=== PATIENT | male | born 1935 | race Caucasian/White ===

== ENCOUNTER → 2017-07-07 | Outpatient (CLI) | payer OTHER | LOC: RAD 10:03 | DX: R06.00 Dyspnea, unspecified (principal) ==

== ENCOUNTER → 2017-10-14 | Outpatient (CLI) | payer OTHER ==
[~2017-10-14] MED LIST: ASPIR 8181 MG PO; CEFUROXIME250 MG PO; COUMADIN 2.5MG2.5 M1 PO; COUMADIN 5 MG TA5 M1 PO; DEMADEX 2020 MG/1 TA PO; LEVALBUTER1.25 MG/0. INH; LIPITOR 20 MG T20 M1 PO; MEDROLDOSEPACK PO; METOPROLOL SUCC50 MG PO; PREDNISONE 20 M20 M1 PO; Synthroid; TOPROL XL50 MG
== END ==
LOC: CAT 08-23 08:01
DX: R91.1 Solitary pulmonary nodule (principal); I51.7 Cardiomegaly; J84.9 Interstitial pulmonary disease, unspecified; J84.10 Pulmonary fibrosis, unspecified; R59.0 Localized enlarged lymph nodes; K80.80 Other cholelithiasis without obstruction; R91.8 Other nonspecific abnormal finding of lung field; L84 Corns and callosities; M47.894 Other spondylosis, thoracic region; J98.11 Atelectasis; Z95.0 Presence of cardiac pacemaker

== ENCOUNTER 2018-01-28 21:15 | Inpatient (IN) | payer OTHER ==
[~2018-01-28] VITALS: Ht 180.3 cm; Wt 83.4 kg
--- NOTE | ~2018-01-28 | EKG ---
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 : 1935 Requested By: Nicolasa Le Order Number: [id number] MD: Shemar Brady Measurements Intervals [place] Rate: 62 P: NV: QRS: -75 QRSD: 166 T: 105 QT: 509 QTc: 517 Interpretive Statements Afib/flut and V-paced complexes No further analysis attempted due to paced rhythm Baseline wander in lead(s) I,III,aVL,V4 Compared to ECG 08/19/2017 13:26:48 ventricular pacing is now present Electronically Signed On 01-31-2018 7:47:24 CDT by Shemar Brady [email or web address] <ELECTRONICALLY SIGNED> By: Shemar Brady MD, [facility] 01/31/18 0747 215 52 Shemar Brady MD, [facility] /EPI
--- NOTE | ~2018-01-28 | HC ---
[facility] [place] [address] CONSULTATION Name: ANCA VAZQUEZ Room #: [address] [place] [address] IN M.R.#: [id number] Admission: 01/28/18 Attend Phys: Aayush Napier DO Discharge: Date of : 37 Report #: [id number] THIS REPORT FOR: //name// CC: Aayush SMITH DEARY DATE OF SERVICE: 01/29/2018 REFERRING PROVIDER: Aayush Napier DO REASON FOR CONSULTATION: Shortness of breath and hypoxemia. HISTORY OF PRESENT ILLNESS: Our group was asked to see the patient in consultation while hospitalized at [facility]. Discussed with Dr. eL in the Emergency Department, the patient at bedside. He is known to me from prior office visits for a known history of interstitial pulmonary fibrosis consistent with prior amiodarone use and was to have followup later this week with repeat pulmonary function studies to see if findings are stable, also has chronic hypoxemic respiratory failure and problems with pulmonary hypertension, has been having several days of increasing shortness of breath. A dinner with family noted increasing dyspnea and labored breathing even ambulating short distances. No cough or congestion noted. The patient has been compliant with his CPAP at night. The patient had a chest x-ray in the Emergency Department, felt to be somewhat pulmonary edema and was given diuretics overnight, noted some improvement in symptoms. No lower extremity edema or change in weight noted by the patient. ALLERGIES: AMIODARONE. PAST MEDICAL HISTORY: 1. History of interstitial pulmonary fibrosis. 2. Pulmonary hypertension. 3. Obstructive sleep apnea. 4. Allergic rhinitis. 5. Atrial fibrillation. 6. Coronary artery disease. 7. Hypertension. 8. Hyperlipidemia. 9. Hypothyroidism. PAST SURGICAL HISTORY: Includes skin cancer resections, rotator cuff repair, tonsillectomy, and coronary artery bypass grafting. SOCIAL HISTORY: The patient is a nonsmoker, no alcohol consumption. [facility] [address] [place] [address] CONSULTATION Name: ANCA VAZQUEZ Room #: 215-P [facility] IN ..#: [id number] Admission: 01/28/18 Attend Phys: Aayush Napier DO Discharge: Date of : 37 Report #: [id number] FAMILY HISTORY: Noncontributory. REVIEW OF SYSTEMS: CONSTITUTIONAL: No fever, chills, sweats. ENT: No upper respiratory congestion, rhinorrhea or dysphagia. CARDIOVASCULAR: No chest pains, palpitations, lower extremity edema. GASTROINTESTINAL: No nausea, vomiting, diarrhea, constipation, abdominal pain, or reflux. GENITOURINARY: No dysuria, no frequency, no hematuria. INTEGUMENT: Denies any rash. MUSCULOSKELETAL: No new joint pains or swelling. PHYSICAL EXAMINATION: VITAL SIGNS: Afebrile, pulse 70s, respiratory rate 18, blood pressure 140/89. GENERAL: This is a pleasant elderly male, in no distress. HEENT: Clear oropharynx. NECK: Supple, no lymphadenopathy. LUNGS: Basilar inspiratory crackles, no wheezes. CARDIOVASCULAR: Heart regular. No murmurs noted. ABDOMEN: Soft, nontender, no masses. EXTREMITIES: With only trace edema. LABORATORY DATA: Chest x-ray with mild interstitial prominence in the bases and some mild pulmonary vascular engorgement. White blood cell count 8000, hemoglobin 14, hematocrit 40, platelet count 195. Sodium 138, potassium 4.1, chloride 102, bicarbonate 23, BUN 43, creatinine 1.5, glucose 217. Arterial blood gas on 3 liters, which is his baseline FiO2 is pH 7.45, pCO2 of 33, pO2 of 69, bicarbonate 24. IMPRESSION: 1. Acute on chronic hypoxemic respiratory failure, perhaps related to some mild pulmonary edema or exacerbation of underlying interstitial lung disease. 2. Chronic interstitial lung disease, suspect from amiodarone use in the past. 3. History of atrial fibrillation. 4. Pulmonary hypertension. SUGGESTIONS: 1. Continue diuresis. 2. Follow up chest radiograph. 3. Bronchodilators. 4. Systemic steroid taper. By: 1528 1808 Isaac Shook MD /nt
--- NOTE | ~2018-01-28 | 2DMMODE ---
[facility] [address] [place] [address] 2 D/M-MODE ECHOCARDIOGRAM Name: ANCA VAZQUEZ Room #: 215-P [facility] IN M.R.#: [id number] Admission: 01/28/18 Attend Phys: Aayush Napier, Discharge: Date of : 37 Date of Service: 01/30/18 1054 Report #: [id number] THIS REPORT FOR: //name// APPROVED REPORT Study performed: 01/29/2018 09:01:09 EXAM: Comprehensive 2D, Doppler, and color-flow Echocardiogram Patient Location: Bedside Room #: 215 Status: on-call BSA: 1.73 HR: 86 bpm BP: 128/84 mmHg Rhythm: Atrial Fibrillation Other Information Study Quality: Good Indications Dyspnea Hx: CABG, stents, CHF, Afib, pacemaker 2D Dimensions RVDd: 63.61 mm LVEF(%): 75.05 (>50%) IVSd: 12.13 (7-11mm) LVOT Diam: 21.12 (18-24mm) LVDd: 35.09 mm PWd: 10.75 (7-11mm) Ascending Ao: 37.60 (22-36mm) LVDs: 20.03 (25-40mm) Aortic Root: 40.01 mm Mast's LVEF: 75.05 % Volumes Left Atrial Volume (Systole) Single Plane 4CH: 40.25 mL Single Plane 2CH: 107.43 mL LA ESV Index: 41.00 mL/m2 Aortic Valve AoV Peak Aman.: 2.43 m/s AO Peak Gr.: 23.70 mmHg LVOT Max P.21 mmHg AO Mean Gr.: 12.34 mmHg AO V2 Mean: 1.62 m/s LVOT Max V: 0.89 m/s AO V2 VTI: 39.88 cm IVAN Vmax: 1.29 cm2 [facility] [place] [address] 2 D/M-MODE ECHOCARDIOGRAM Name: GEORGEANCA Room #: 215-[facility] IN ..#: [id number] Admission: 01/28/18 Attend Phys: Aayush Napier, Discharge: Date of : 37 Date of Service: 01/30/18 1054 Report #: [id number] Mitral Valve MV Decel. Time: 161.09 ms MV E Max Aman.: 1.01 m/s Pulmonary Valve PV Peak Aman.: 1.03 m/s PV Peak Gr.: 4.48 mmHg Tricuspid Valve TR Peak Aman.: 2.79 m/s RAP Estimate: 15.00 mmHg TR Peak Gr.: 31.85 mmHg PA Pressure: 47.00 mmHg Left Ventricle The left ventricle is normal size. There is normal LV segmental wall motion. Mild concentric left ventricular hypertrophy. Left ventricular systolic function is normal. LVEF is 60%. This study is not technically sufficient to allow evaluation of the LV diastolic function due to atrial fibrillation. Right Ventricle Right ventricle is severely dilated. Right ventricle is moderately hypokinetic. Pacemaker lead is present in the right ventricle. Atria Left atrium is moderately dilated. Right atrium is severely dilated. Aortic Valve Aortic valve is moderately calcified. Mild aortic regurgitation. Mild to moderate aortic stenosis. Calculated IVAN by the continuity equation is 1.4cm2. Mitral Valve Mitral valve leaflets are mildly thickened and calcified. Mild mitral annular calcification. Moderate mitral regurgitation. No evidence of mitral valve stenosis. Tricuspid Valve The tricuspid valve is normal in structure. Severe tricuspid regurgitation. Estimated PAP is 45-50mmHg. Pulmonic Valve The pulmonary valve is normal in structure. Moderate to severe pulmonic regurgitation. [employer] [facility] [address] [place] [address] 2 D/M-MODE ECHOCARDIOGRAM Name: ANCA VAZQUEZ Room #: 215[facility]P [facility] IN .R.#: [id number] Admission: 01/28/18 Attend Phys: Aayush Napier, Discharge: Date of : 37 Date of Service: 01/30/18 1054 Report #: [id number] Aortic root is mildly dilated. The ascending aorta is borderline dilated. IVC is dilated and collapses <50% with inspiration. Pericardium There is no pericardial effusion. <Conclusion> The left ventricle is normal size. Mild concentric left ventricular hypertrophy. LVEF is 60%. This study is not technically sufficient to allow evaluation of the LV diastolic function due to atrial fibrillation. Right ventricle is severely dilated. Right ventricle is moderately hypokinetic. Left atrium is moderately dilated. Right atrium is severely dilated. Aortic valve is moderately calcified. Mild aortic regurgitation. Mild to moderate aortic stenosis. Calculated IVAN by the continuity equation is 1.4cm2. Mitral valve leaflets are mildly thickened and calcified. Mild mitral annular calcification. Moderate mitral regurgitation. Severe tricuspid regurgitation. Estimated PAP is 45-50mmHg. Moderate to severe pulmonic regurgitation. Aortic root is mildly dilated. There is no pericardial effusion. <ELECTRONICALLY SIGNED> By: Noah Cotton MD, FACC 01/30/18 1054 1054 Noah Cotton MD, FACC /INF
[~2018-01-28 21:15] MED LIST changes: -ASPIR 8181 MG PO; -COUMADIN 2.5MG2.5 M1 PO; -LIPITOR 20 MG T20 M1 PO; -METOPROLOL SUCC50 MG PO; -PREDNISONE 20 M20 M1 PO
[2018-01-28 21:23] VITALS: BP 120/72
[2018-01-28 21:51] LABS: HCO3 23.9 mmol/L (22.0-26.0); PO2 68.7 mmHg (80.0-100.0); pH 7.477 (7.360-7.450)
[2018-01-28] MEDS ORDERED: LIPITOR 20 MG T20 M1 PO (21:54)
[2018-01-28 22:21] LABS: ABSOLUTE NEUTROPHILS 8.2 thou/uL (1.4-8.2); BASOPHILS 0.8 % (0.0-2.0); EOSINOPHILS 1.8 % (0.0-3.0); HEMATOCRIT 40.3 % (42.0-52.0); HEMOGLOBIN 13.7 gm/dL (14.0-18.0); LYMPHOCYTES 12.3 % (24.0-44.0); MCH 34.1 pg (26.0-34.0); MCHC 33.9 g/dL (28.0-37.0); MCV 100.5 fL (80.0-100.0); MONOCYTES 7.6 % (1.0-8.0); PLATELET COUNT 193 thou/uL (150-400); POLYS 77.5 % (36.0-66.0); RBC 4.01 mil/uL (4.50-6.00); RDW 15.6 % (10.5-14.5); WBC 10.6 thou/uL (4.0-11.0)
[2018-01-28 22:41] LABS: CALCIUM 9.5 mg/dL (8.5-10.1); CREATININE 1.6 mg/dL (0.7-1.3); POTASSIUM 4.6 mmol/L (3.5-5.1)
[2018-01-28 22:52] VITALS: BP 120/72
[2018-01-28 23:23] VITALS: BP 123/81
[2018-01-29 00:10] VITALS: BP 111/75
[2018-01-29 02:59] LABS: HEMATOCRIT 39.7 % (42.0-52.0); HEMOGLOBIN 13.6 gm/dL (14.0-18.0); MCH 34.3 pg (26.0-34.0); MCHC 34.3 g/dL (28.0-37.0); RBC 3.97 mil/uL (4.50-6.00); RDW 15.4 % (10.5-14.5); WBC 8.1 thou/uL (4.0-11.0)
[2018-01-29 03:07] LABS: CALCIUM 9.3 mg/dL (8.5-10.1); CREATININE 1.5 mg/dL (0.7-1.3); POTASSIUM 4.1 mmol/L (3.5-5.1)
[2018-01-29 03:11] LABS: INR 2.6; PROTIME 26.3 Seconds (9.3-11.4)
[2018-01-29 04:53] VITALS: BP 128/84
[2018-01-29 07:40] VITALS: BP 140/89
[2018-01-29 11:40] VITALS: BP 93/55
[2018-01-29 15:35] VITALS: BP 104/67
[2018-01-29 19:57] VITALS: BP 100/58
[2018-01-30 03:47] LABS: ABSOLUTE NEUTROPHILS 12.8 thou/uL (1.4-8.2); BASOPHILS 0.1 % (0.0-2.0); HEMATOCRIT 36.3 % (42.0-52.0); HEMOGLOBIN 12.2 gm/dL (14.0-18.0); MCH 33.8 pg (26.0-34.0); MCHC 33.6 g/dL (28.0-37.0); MCV 100.6 fL (80.0-100.0); MONOCYTES 3.5 % (1.0-8.0); PLATELET COUNT 174 thou/uL (150-400); POLYS 91.4 % (36.0-66.0); RBC 3.61 mil/uL (4.50-6.00); RDW 15.2 % (10.5-14.5)
[2018-01-30 03:58] LABS: CALCIUM 9.3 mg/dL (8.5-10.1); CREATININE 1.3 mg/dL (0.7-1.3); POTASSIUM 3.6 mmol/L (3.5-5.1)
[2018-01-30 04:29] VITALS: BP 111/70
[2018-01-30 08:10] VITALS: BP 103/69
[2018-01-30 09:48] LABS: PROTIME 30.4 Seconds (9.3-11.4)
[2018-01-30 11:15] VITALS: BP 99/65
[2018-01-30 15:30] VITALS: BP 120/73
[2018-01-30 19:22] VITALS: BP 122/74
[2018-01-31 00:11] VITALS: BP 103/60
[2018-01-31 03:22] VITALS: BP 105/59
[2018-01-31 04:36] LABS: ABSOLUTE NEUTROPHILS 13.7 thou/uL (1.4-8.2); BASOPHILS 0.1 % (0.0-2.0); HEMATOCRIT 36.6 % (42.0-52.0); HEMOGLOBIN 12.4 gm/dL (14.0-18.0); LYMPHOCYTES 4.1 % (24.0-44.0); MCH 34.2 pg (26.0-34.0); MCHC 33.9 g/dL (28.0-37.0); MCV 100.9 fL (80.0-100.0); MONOCYTES 3.8 % (1.0-8.0); PLATELET COUNT 180 thou/uL (150-400); RBC 3.63 mil/uL (4.50-6.00); WBC 14.8 thou/uL (4.0-11.0)
[2018-01-31 04:44] LABS: CALCIUM 9.3 mg/dL (8.5-10.1); CREATININE 1.2 mg/dL (0.7-1.3)
[2018-01-31 04:51] LABS: INR 4.6
[2018-01-31 07:40] VITALS: BP 134/81
[2018-01-31 11:20] VITALS: BP 116/69
[2018-01-31 15:45] VITALS: BP 101/65
[2018-01-31 19:45] VITALS: BP 104/63
[2018-02-01 04:32] VITALS: BP 121/56
[2018-02-01 05:56] LABS: ABSOLUTE NEUTROPHILS 11.4 thou/uL (1.4-8.2); BASOPHILS 0.1 % (0.0-2.0); HEMOGLOBIN 12.6 gm/dL (14.0-18.0); LYMPHOCYTES 7.2 % (24.0-44.0); MCH 34.1 pg (26.0-34.0); MCV 100.3 fL (80.0-100.0); MONOCYTES 6.3 % (1.0-8.0); PLATELET COUNT 173 thou/uL (150-400); POLYS 86.4 % (36.0-66.0); RBC 3.69 mil/uL (4.50-6.00); RDW 15.9 % (10.5-14.5); WBC 13.2 thou/uL (4.0-11.0)
[2018-02-01 06:18] LABS: CALCIUM 9.1 mg/dL (8.5-10.1); CREATININE 1.2 mg/dL (0.7-1.3); POTASSIUM 4.2 mmol/L (3.5-5.1)
[2018-02-01 07:40] VITALS: BP 123/66
[2018-02-01] MEDS ORDERED: COUMADIN 2.5MG2.5 M1 PO (09:17)
[2018-02-01] MEDS ORDERED: ASPIR 8181 MG PO (09:18)
[2018-02-01] MEDS ORDERED: PREDNISONE 20 M20 M1 PO (09:18)
[2018-02-01] MEDS ORDERED: METOPROLOL SUCC50 MG PO (11:29)
[2018-02-01 15:09] VITALS: BP 123/66
[2018-02-01 15:12] VITALS: BP 123/66
[2018-02-01 15:14] VITALS: BP 123/66
[2018-02-01 15:17] VITALS: BP 123/66
== END 2018-02-01 15:45 | disposition home or self-care (01) | DRG 189 ==
LOC: ER 21:15 → EROBS 23:01 → 2N 23:01 → ENTRNSPT 02-01 15:37 → EDTRNSPTSTS 02-01 15:40 → 2N 02-01 15:45
PROVIDERS: Emergency Medicine; Family Medicine; Nurse Practitioner Adult Health; Nurse Practitioner Family
DX: J96.21 Acute and chronic respiratory failure with hypoxia (principal); N17.9 Acute kidney failure, unspecified; J84.10 Pulmonary fibrosis, unspecified; I35.0 Nonrheumatic aortic (valve) stenosis; I34.0 Nonrheumatic mitral (valve) insufficiency; I27.20 Pulmonary hypertension, unspecified; I50.9 Heart failure, unspecified; E78.5 Hyperlipidemia, unspecified; T46.2X5A Adverse effect of other antidysrhythmic drugs, initial encounter; G47.33 Obstructive sleep apnea (adult) (pediatric); I25.10 Atherosclerotic heart disease of native coronary artery without angina pectoris; I48.91 Unspecified atrial fibrillation; I11.0 Hypertensive heart disease with heart failure; E03.9 Hypothyroidism, unspecified; I49.5 Sick sinus syndrome; Z90.49 Acquired absence of other specified parts of digestive tract; Z95.1 Presence of aortocoronary bypass graft; Z79.01 Long term (current) use of anticoagulants; Z95.5 Presence of coronary angioplasty implant and graft; Z95.0 Presence of cardiac pacemaker; Y92.89 Other specified places as the place of occurrence of the external cause; Z79.899 Other long term (current) drug therapy
CPT/HCPCS: 10081

== ENCOUNTER 2018-02-15 15:35 | Inpatient (IN) | payer OTHER ==
[~2018-02-15] VITALS: Ht 180.3 cm; Wt 84.2 kg
--- NOTE | ~2018-02-15 | EKG ---
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: [facility] : 1935 Requested By: Taty Jones Order Number: [id number] MD: Shemar Brady Measurements Intervals [place] Rate: 76 P: CT: QRS: 81 QRSD: 119 T: 83 QT: 446 QTc: 502 Interpretive Statements Afib/flut and V-paced complexes Inferior infarct, age indeterminate Nonspecific ST and T wave abnormality Compared to ECG 01/28/2018 21:53:21 Intrinsic depolarizations are more frequent Electronically Signed On 02-15-2018 16:51:55 CDT by Shemar Brady [email or web address] <ELECTRONICALLY SIGNED> By: Shemar Brady MD, [facility] 02/15/18 1651 1604 160 Shemar Brady MD, [facility] /EPI
--- NOTE | ~2018-02-15 | HC ---
[facility] [place] [address] CONSULTATION Name: ANCA VAZQUEZ Room #: 358-[facility] IN M.R.#: [id number] Admission: 02/15/18 Attend Phys: Becky Alejandro Discharge: Date of : 37 Report #: [id number] THIS REPORT FOR: //name// CC: Becky Alejandro Physician staff OZZY THRASHER REASON FOR CONSULTATION: Shortness of breath. HISTORY OF PRESENT ILLNESS: The patient is an 82-year-old gentleman with a history of permanent atrial fibrillation, coronary artery disease with remote bypass surgery and pulmonary fibrosis. He has a history of prior pacemaker implantation. His atrial fibrillation has been approached with a rate control strategy plus anticoagulant therapy. He has had several admissions in the past 6 months, mostly for exacerbation of his lung disease. He has been on a steroid taper, most recently discontinued last Wednesday. Last week, he was at [place] and had been out in the heat, although had limited his time in the heat. Over the past several days, he has had lightheadedness and weakness especially when going from a sitting to standing position. He denies fevers, chills or cough. His oxygen requirements have been about the same. No history of near syncope or syncope, occasional palpitations when going from a sitting to standing position. MEDICATIONS: Include metoprolol 50 mg twice daily, baby aspirin, warfarin 2.5 mg daily, torsemide 20 mg daily and Xopenex nebulizer. PAST MEDICAL HISTORY: Medical records have been reviewed and include a history of pulmonary fibrosis, coronary artery bypass grafting, appendectomy, rotator cuff repair, tonsillectomy, , history of colon cancer, permanent atrial fibrillation with pacemaker implantation. SOCIAL HISTORY: Lives with his . He has never been a smoker. FAMILY HISTORY: Unremarkable for premature coronary artery disease. REVIEW OF SYSTEMS: All systems negative except as that noted above. PHYSICAL EXAMINATION: GENERAL: He is a pleasant gentleman, in no distress. VITAL SIGNS: Blood pressure is 105/72, heart rate is 65 and irregular, he is afebrile. HEENT: There are neither xanthelasma, subcutaneous xanthomata, oral mucosal or digital cyanosis or kyphoscoliosis present. CHEST: Reveals bibasilar rales. CARDIAC: Reveals an irregularly irregular rhythm with normal S1, S2. ABDOMEN: Soft and nontender. EXTREMITIES: Without cyanosis, clubbing or edema. Radial pulses are 2+. NEUROLOGIC: He is alert with a nonfocal exam. [facility] [address] [place] [address] CONSULTATION Name: ANCA VAZQUEZ Room #: 358-P [facility] IN M.R.#: [id number] Admission: 02/15/18 Attend Phys: Becky Alejandro Discharge: Date of : 37 Report #: [id number] EKG, atrial fibrillation with a moderate ventricular response, occasional ventricular pacing, nonspecific ST segment abnormality. Sodium 138, potassium 4.1, creatinine 1.4. Troponin 0.07. ProBNP of 15,000. INR of 5.0. White count 12.1, hemoglobin 15, hematocrit 47, platelet count 146. Chest x-ray demonstrates normal vascularity, chronic lung changes. IMPRESSION: 1. Pulmonary fibrosis; pulmonary hypertension. 2. Coronary artery disease with prior coronary artery bypass grafting and stenting, stable. 3. Permanent atrial fibrillation with prior pacemaker implantation. 4. Orthostatic hypotension; intravascular volume depletion suspected. 5. Xcvs-km-kknguhuj aortic stenosis; moderate mitral insufficiency, stable. 6. Sleep apnea, on CPAP. RECOMMENDATIONS: 1. Gentle hydration. 2. Reduced torsemide as needed dosing based on weight gain or edema. 3. Continued use of metoprolol for rate control. Thank you for asking me to participate in the patient's care. By: 0732 1138 Shemar Brady MD, FACC /nt
--- NOTE | ~2018-02-15 | HC ---
[facility] [place] [address] CONSULTATION Name: ANCA VAZQUEZ Room #: 358[facility] IN M.R.#: [id number] Admission: 02/15/18 Attend Phys: Becky Alejandro Discharge: 02/16/18 Date of : 37 Report #: [id number] THIS REPORT FOR: //name// CC: Becky Alejandro Physician staff OZZY THRASHER DATE OF SERVICE: 02/16/2018 REFERRAL PHYSICIAN: Dr. Alejandro. REASON FOR REFERRAL: Dyspnea and hypoxia. HISTORY OF PRESENT ILLNESS: The patient is an 82-year-old white male, with pulmonary fibrosis, presents to the hospital with progressive dyspnea and chest pain. A pulmonary consultation was requested. The patient is normally followed by Dr. Shook. He has known interstitial lung disease felt to be related to amiodarone. He was just discharged about 2 weeks ago. He was on prednisone for his interstitial lung disease and this was recently discontinued 4 days prior to presentation. According to the patient, ever since discharge, he remained dyspneic with minimal exertion. With worsening symptoms, he presented to the Emergency Room. Chest x-ray shows mild to moderate bilateral interstitial infiltrates. This appears to be unchanged from prior chest x-rays. When I saw him presently, he appears to be dyspneic. His respiratory pattern appears to be Ruben-Stoking. He is felt to be volume depleted. IV fluid has been initiated by the service. Otherwise, he denies any chest pain, recent febrile illness, sore throat, productive cough. 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 PAST SURGICAL HISTORY: Status post appendectomy, tonsillectomy, also as mentioned above, rotator cuff surgery, deviated septum repair. ALLERGIES: None to medications. [facility] [address] [place] [address] CONSULTATION Name: ANCA VAZQUEZ Room #: 358[facility] IN ..#: [id number] Admission: 02/15/18 Attend Phys: Becky Alejandro Discharge: 02/16/18 Date of : 37 Report #: [id number] HOME MEDICATIONS: Xopenex, Demadex, Coumadin, aspirin, metoprolol. FAMILY HISTORY: Noncontributory. SOCIAL HISTORY: Denies any tobacco or alcohol use. He is . REVIEW OF SYSTEMS: As mentioned above, otherwise 10-point system review negative. PHYSICAL EXAMINATION: GENERAL: He is awake, alert and moderately distressed. He appears tachypneic with respiratory patterns consistent with Ruben-Barajas respiration. VITAL SIGNS: Temperature is 97.9 degrees Fahrenheit, pulse is 63, blood pressure 119/76 mmHg, saturation 94%. HEENT: Normocephalic, atraumatic. NECK: Supple, no lymphadenopathy or thyromegaly. CHEST: Breath sounds are moderate with bilateral crackles. No wheezes. CARDIOVASCULAR: Regular rhythm. No obvious murmurs or gallop. Pulses are 2+/4+ bilaterally. ABDOMEN: Soft, nontender, no organomegaly or masses felt. GENITOURINARY: Deferred. RECTAL: Deferred. EXTREMITIES: There is no edema, cyanosis or clubbing. NEUROLOGIC: Grossly intact. LABORATORY DATA: Chest x-ray again shows moderate bilateral interstitial infiltrates, no obvious consolidation. A permanent pacemaker is noted. Troponin is 0.07. EKG shows atrial fibrillation/flutter, inferior infarct, age indeterminate. Sodium 138, potassium 4.1, chloride 103, CO2 of 22, BUN is 43, creatinine is 1.4, baseline creatinine appears to be around 1.3. Arterial blood gas revealed pH 7.22, pCO2 of 37, pO2 of 77 on FiO2 100%. INR is 6.9. Troponin 0.07. IMPRESSION: 1. Dyspnea, hypoxia in this 82-year-old white male. His respiratory pattern is suggestive of Ruben-Barajas respiration. Suspect etiology is multifactorial, but cannot rule out underlying heart failure or other cardiac etiologies. He does have underlying pulmonary fibrosis, which is likely contributing. Pneumonia is felt to be less likely though cannot be ruled out. 2. Suspected volume depletion with orthostatic hypotension. He has been given IV fluid replacement. 3. Coronary artery disease with prior coronary artery bypass surgery, stent placement. Recent echocardiogram from January 2018 showed ejection fraction 60%, mild concentric left ventricular hypertrophy, left ventricular diastolic dysfunction, severely dilated right ventricle, moderately hypokinetic right [facility] [address] [place] [address] CONSULTATION Name: ANCA VAZQUEZ Room #: 358-P DIS IN M.R.#: [id number] Admission: 02/15/18 Attend Phys: Becky Alejandro Discharge: 02/16/18 Date of : 37 Report #: [id number] ventricle, both right and left atrium moderately to severely dilated, moderate mitral regurgitation, pulmonary artery pressure measured around 45-50 mmHg, atrial fibrillation, status post permanent pacemaker placement. 4. Chronic hypoxic respiratory failure due to underlying interstitial lung disease, pulmonary fibrosis, felt to be related to amiodarone. CT chest shows subpleural fibrosis suggesting other idiopathic interstitial pneumonitis that may be possible. 5. 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 6. Obstructive sleep apnea, on CPAP. RECOMMENDATIONS: The patient appears mildly distressed, particularly with his dyspnea. We will recommend ICU transfer. May need to consider discontinuing IV fluids. I would treat for possible occult sepsis, possible pneumonia. With Ruben-Barajas respiration, my concerns are primary cardiac etiology. Findings were discussed in detail with the patient's . She voiced understanding. ADDENDUM: The patient subsequently became apneic, bradycardic along with the loss of pulse. Code lamont was called. He was subsequently intubated, being resuscitated, code being managed by Dr. Alejandro. The patient will be transferred to ICU. Critical care time 1 hour. Thank you for this consultation. <ELECTRONICALLY SIGNED> By: Jamil Hrering MD 02/17/18 1312 1222 23 Jamil Herring MD /nt
[~2018-02-15 15:35] MED LIST changes: +ASPIR 8181 MG PO; +COUMADIN 2.5MG2.5 M1 PO; +LIPITOR 20 MG T20 M1 PO; +METOPROLOL SUCC50 MG PO; +PREDNISONE 20 M20 M1 PO
[2018-02-15 16:20] VITALS: BP 88/38
[2018-02-15 16:31] LABS: ABSOLUTE NEUTROPHILS 9.3 thou/uL (1.4-8.2); BASOPHILS 0.5 % (0.0-2.0); EOSINOPHILS 2.1 % (0.0-3.0); HEMATOCRIT 47.1 % (42.0-52.0); HEMOGLOBIN 15.9 gm/dL (14.0-18.0); LYMPHOCYTES 12.8 % (24.0-44.0); MCH 34.4 pg (26.0-34.0); MCHC 33.8 g/dL (28.0-37.0); MCV 101.7 fL (80.0-100.0); MONOCYTES 7.9 % (1.0-8.0); PLATELET COUNT 146 thou/uL (150-400); POLYS 76.7 % (36.0-66.0); RBC 4.63 mil/uL (4.50-6.00); RDW 17.1 % (10.5-14.5); WBC 12.1 thou/uL (4.0-11.0)
[2018-02-15 16:39] LABS: CALCIUM 9.6 mg/dL (8.5-10.1); CREATININE 1.4 mg/dL (0.7-1.3)
[2018-02-15 16:47] LABS: TROPONIN-I 0.06 ng/mL (<0.06)
[2018-02-15 18:44] VITALS: BP 102/69
[2018-02-15 19:25] VITALS: BP 111/80
[2018-02-15 20:05] VITALS: BP 105/76
[2018-02-15 23:30] VITALS: BP 93/71
[2018-02-16 04:30] VITALS: BP 105/72
[2018-02-16 06:02] LABS: CALCIUM 9.1 mg/dL (8.5-10.1); CREATININE 1.4 mg/dL (0.7-1.3); MAGNESIUM 2.1 mg/dL (1.8-2.4); POTASSIUM 4.1 mmol/L (3.5-5.1)
[2018-02-16 08:00] VITALS: BP 119/76
[2018-02-16 09:26] LABS: HCO3 16.9 mmol/L (22.0-26.0); PO2 67.1 mmHg (80.0-100.0); sO2 95.6 % (92.0-98.0)
[2018-02-16 09:27] LABS: INR 6.9
[2018-02-16 09:27] LABS: PCO2 20.7 mmHg (35.0-45.0)
[2018-02-16 09:28] LABS: PROTIME 68.2 Seconds (9.3-11.4)
[2018-02-16 12:10] LABS: BE(vivo) -11.4 mmol/L (-2 to +3); HCO3 15.4 mmol/L (22.0-26.0); PCO2 37.7 mmHg (35.0-45.0)
[2018-02-16 12:11] LABS: pH 7.228 (7.360-7.450)
[2018-02-16 12:21] LABS: CALCIUM 8.7 mg/dL (8.5-10.1); CREATININE 1.8 mg/dL (0.7-1.3)
[2018-02-16 12:27] LABS: POTASSIUM 7.5 mmol/L (3.5-5.1)
[2018-02-16 12:30] LABS: MAGNESIUM 2.5 mg/dL (1.8-2.4); TROPONIN-I 0.32 ng/mL (<0.06)
[2018-02-16 12:31] LABS: HEMATOCRIT 50.3 % (42.0-52.0); HEMOGLOBIN 16.5 gm/dL (14.0-18.0); MCH 33.9 pg (26.0-34.0); MCHC 32.8 g/dL (28.0-37.0); MCV 103.4 fL (80.0-100.0); RBC 4.87 mil/uL (4.50-6.00); RDW 17.8 % (10.5-14.5); WBC 13.2 thou/uL (4.0-11.0)
== END 2018-02-16 12:44 | DRG 871 ==
LOC: ER 15:35 → EROBS 18:32 → 3W 18:32
PROVIDERS: Emergency Medicine; Hospitalist; Internal Medicine Pulmonary Disease
PROC: 0BH17EZ Insertion of Endotracheal Airway into Trachea, Via Natural or Artificial Opening (ICD-10-PCS; principal; 2018-02-15)
PROC: 5A09357 Assistance with Respiratory Ventilation, Less than 24 Consecutive Hours, Continuous Positive Airway Pressure (ICD-10-PCS; principal; 2018-02-15)
PROC: 5A1935Z Respiratory Ventilation, Less than 24 Consecutive Hours (ICD-10-PCS; 2018-02-16)
PROC: 5A12012 Performance of Cardiac Output, Single, Manual (ICD-10-PCS; 2018-02-16)
DX: A41.9 Sepsis, unspecified organism (principal); J96.21 Acute and chronic respiratory failure with hypoxia; I42.8 Other cardiomyopathies; E27.40 Unspecified adrenocortical insufficiency; I13.0 Hypertensive heart and chronic kidney disease with heart failure and stage 1 through stage 4 chronic kidney disease, or unspecified chronic kidney disease; I49.9 Cardiac arrhythmia, unspecified; I48.91 Unspecified atrial fibrillation; G47.33 Obstructive sleep apnea (adult) (pediatric); E03.9 Hypothyroidism, unspecified; E78.5 Hyperlipidemia, unspecified; H54.7 Unspecified visual loss; I25.10 Atherosclerotic heart disease of native coronary artery without angina pectoris; I27.20 Pulmonary hypertension, unspecified; I08.0 Rheumatic disorders of both mitral and aortic valves; I95.1 Orthostatic hypotension; J84.10 Pulmonary fibrosis, unspecified; N18.9 Chronic kidney disease, unspecified; I50.9 Heart failure, unspecified; Z95.0 Presence of cardiac pacemaker; Z90.49 Acquired absence of other specified parts of digestive tract; Z90.89 Acquired absence of other organs; Z95.1 Presence of aortocoronary bypass graft; Z98.61 Coronary angioplasty status; Z79.899 Other long term (current) drug therapy; Z79.82 Long term (current) use of aspirin; Z79.01 Long term (current) use of anticoagulants; Z85.038 Personal history of other malignant neoplasm of large intestine; Z99.81 Dependence on supplemental oxygen; Z80.1 Family history of malignant neoplasm of trachea, bronchus and lung
CPT/HCPCS: 10779